=== PATIENT | female | born 1980 | race Caucasian/White ===

== ENCOUNTER → 2017-06-11 | Outpatient (CLI) | payer OTHER ==
[2014-06-25 00:11] VITALS: BP 123/80
--- NOTE | 2017-06-11 13:59 | CT ---
Indication: Hematuria and pain Exam: CT abdomen and pelvis without contrast. Technique: Axial spiral images were obtained from lung bases through the pubic symphysis without cont rast. Automated dose control was utilized. Findings: There are partially visualized breast implants inferiorly which appear intact. There is mil d pleural thickening and scarring along the lung bases posteriorly. The liver and spleen are normal s ize and density. No focal lesion is seen. The gallbladder has been removed with clips in the gallblad mari fossa. There surgical clips seen scattered along the capsule of the right lobe of the liver anter iorly. The pancreas and adrenals are normal. The kidneys are normal size with no hydronephrosis or re nal stones. The ureters are normal caliber . There is no adenopathy or ascites. The uterus is grossly unremarkable with no pelvic mass . The bladder is unremarkable. There are diverticula along the sigm oid colon with no pericolonic inflammation. The appendix is not well visualized there is no pericecal inflammation . The bones are intact with no aggressive osseous lesion. Impression: Status post cholecystectomy with postop changes along the right lobe of liver inferiorly . No acute a bnormality is seen. No hydronephrosis or renal stones and no CT evidence of urinary obstruction . Mild diverticulosis of the sigmoid colon with no pericolonic inflammation . No pelvic mass or adenopathy. Reported By:
== END ==
LOC: RAD 12:02
PROVIDERS: ATTEND Internal Medicine
DX: R30.0 Dysuria (principal); R31.9 Hematuria, unspecified; M54.5 Low back pain; K57.30 Diverticulosis of large intestine without perforation or abscess without bleeding
CPT/HCPCS: 74176